=== PATIENT | male | born 1950 | race African-American/Black ===

== ENCOUNTER → 2019-01-19 | Outpatient (CLI) | payer MEDICARE, OTHER ==
[~2019-01-19] MED LIST: METOPROLOL 5 MG INJ IV
[2019-01-19] MEDS: METOPROLOL 100 MG TAB PO (10:43)
[2019-01-19] MEDS: METOPROLOL 100 MG TAB (10:53)
[2019-01-19] MEDS: NITROGLYCERIN AEROSOL (4.9 GM) SL (12:15)
[2019-01-19] MEDS: SOD CHLORIDE 0.9% 100 ML (13:04)
[2019-01-19] MEDS: IOHEXOL 100 ML (13:05)
[2019-01-19] MEDS: METOPROLOL 5 MG INJ (13:41)
== END | disposition home or self-care (01) ==
LOC: C/S 10:03
DX: R93.1 Abnormal findings on diagnostic imaging of heart and coronary circulation (principal)
CPT/HCPCS: 75571; 75571-59; 75574

== ENCOUNTER 2019-02-04 07:02 | Day surgery (SDC) | payer MEDICARE, OTHER ==
[2019-02-04 08:10] LABS: ADD MAN DIFF? NO
[2019-02-04 08:16] LABS: WHITE BLOOD COUNT 4.7 10^3/ul (4.8-10.8)
[2019-02-04 08:16] LABS: BASOPHILS % 0.4 % (0.0-2.0); EOSINOPHILS # 0.2 10^3/ul (0.0-0.5); EOSINOPHILS % 3.6 % (0.0-7.0); HEMATOCRIT 41.5 % (42.0-52.0); HEMOGLOBIN 13.4 g/dl (14.0-18.0); LYMPHOCYTES # 1.4 10^3/ul (0.8-2.9); LYMPHOCYTES % 29.4 % (15.0-51.0); MEAN CORPUSCULAR HEMOGLOBIN 28.8 pg (29.0-33.0); MEAN CORPUSCULAR HGB CONC 32.3 g/dl (32.0-37.0); MEAN CORPUSCULAR VOLUME 89.1 fl (82.0-101.0); MEAN PLATELET VOLUME 10.1 fl (7.4-10.4); MONOCYTE # 0.6 10^3/ul (0.3-0.9); MONOCYTES % 12.1 % (0.0-11.0); NEUTROPHIL # 2.6 10^3/ul (1.6-7.5); NEUTROPHILS % 54.3 % (39.0-77.0); PLATELET COUNT 269 10^3/UL (140-415); RED BLOOD COUNT 4.66 10^6/ul (4.70-6.10); RED CELL DISTRIBUTION WIDTH 12.9 % (11.5-14.5)
[2019-02-04] MEDS: SOD CHLORIDE 0.45% 1,000 ML IV (08:24)
[2019-02-04] MEDS: DIAZEPAM 5 MG TAB PO (08:24)
[2019-02-04] MEDS: FAMOTIDINE 20 MG TAB PO (08:24)
[2019-02-04] MEDS: DIPHENHYDRAMINE 50 MG CAP PO (08:24)
[2019-02-04 08:36] LABS: ANION GAP 4 (5-13); BLOOD UREA NITROGEN 15 mg/dl (7-20); CARBON DIOXIDE 31 mmol/L (21-31); CHLORIDE 104 mmol/L (97-110); CHOL/HDL RATIO 4.3 RATIO; CHOLESTEROL 174 mg/dl (100-200); CREATININE 0.91 mg/dl (0.61-1.24); Estimated GFR > 60 mL/min (>60); GLUCOSE 99 mg/dl (70-220); HDL CHOLESTEROL 40 mg/dl (30-78); LDL CHOLESTEROL,CALCULATED 118 mg/dl; POTASSIUM 4.5 mmol/L (3.5-5.1); SODIUM 139 mmol/L (135-144); TRIGLYCERIDES 80 mg/dl (0-149)
[2019-02-04 08:41] LABS: INR 0.98; PROTIME 13.1 Sec (11.9-14.9)
[2019-02-04 08:42] LABS: PARTIAL THROMBOPLASTIN TIME 28.7 Sec (23.0-35.0)
[2019-02-04] MEDS ORDERED: NITROGLYCERIN (IC) 100 MCG/ML INJ (10:08)
[2019-02-04] MEDS ORDERED: HEPARIN 1000 UNITS/ML 10 ML INJ (10:08)
[2019-02-04] MEDS ORDERED: FENTAnyl 50 MCG/ML VIAL (10:08)
[2019-02-04] MEDS ORDERED: VERAPAMIL 5 MG INJ (10:08)
[2019-02-04] MEDS ORDERED: LIDOCAINE 1% (MDV) 20 ML INJ (10:08)
[2019-02-04] MEDS ORDERED: MIDAZOLAM 1 MG/ML 2 ML INJ (10:08)
[2019-02-04] MEDS ORDERED: SOD CHLORIDE 0.9% 1,000 ML IV (11:06)
[2019-02-04] MEDS ORDERED: ONDANSETRON 4 MG INJ IV (11:30)
[2019-02-04] MEDS ORDERED: morphine 2 MG INJ IV (11:30)
[2019-02-04] MEDS ORDERED: AL HYDROX/MG HYDROX/SIMETH 30 ML CUP PO (11:30)
[2019-02-04] MEDS: ACETAMINOPHEN 325 MG TAB PO (14:02)
== END 2019-02-04 17:00 | disposition home or self-care (01) ==
LOC: CCL 07:02 → SDS 07:02 → CCL 17:00
DX: I25.10 Atherosclerotic heart disease of native coronary artery without angina pectoris (principal); R94.39 Abnormal result of other cardiovascular function study; I10 Essential (primary) hypertension; E78.5 Hyperlipidemia, unspecified
CPT/HCPCS: 71045; 80048; 80061; 82962; 85025; 85610; 85730; 93005; 93458

== ENCOUNTER 2019-03-19 06:30 | Day surgery (SDC) | payer MEDICARE, BC, OTHER ==
[2019-03-19] MEDS ORDERED: LIDOCAINE 2% (SDV) 5 ML INJ (08:36)
[2019-03-19] MEDS ORDERED: PROPOFOL 20 ML (08:36)
[2019-03-19] MEDS ORDERED: FENTAnyl 50 MCG/ML VIAL (08:36)
[2019-03-19] MEDS ORDERED: SUCCINYLCHOLINE CHLORIDE 100 MG/5 ML SYG IV ×2 (08:37→09:37)
[2019-03-19] MEDS ORDERED: CEFAZOLIN 1 GM INJ (09:08)
[2019-03-19] MEDS: CEFAZOLIN 2 GM/50 ML (PMX) 50 ML IVPB (09:15)
[2019-03-19] MEDS ORDERED: FAMOTIDINE 20 MG INJ (09:26)
[2019-03-19] MEDS ORDERED: ONDANSETRON 4 MG INJ (09:26)
[2019-03-19] MEDS ORDERED: METOCLOPRAMIDE 10 MG INJ (09:26)
[2019-03-19] MEDS ORDERED: EPHEDrine 25 MG/5 ML SYG (09:41)
[2019-03-19] MEDS: BUPIVACAINE 0.25% (MPF) 30 ML INJ (09:45)
[2019-03-19] MEDS ORDERED: FENTAnyl 50 MCG/ML VIAL IV ×2 (10:00)
[2019-03-19] MEDS ORDERED: OXYCODONE/ACETAMINOPHEN (5/325) TAB PO ×2 (10:00)
[2019-03-19] MEDS ORDERED: MEPERIDINE 25 MG INJ IV (10:00)
[2019-03-19] MEDS ORDERED: ONDANSETRON 4 MG INJ IV (10:00)
[2019-03-19] MEDS ORDERED: ALBUTEROL 0.083% (NEB) 2.5 MG/3 ML AMP HHN (10:00)
[2019-03-19] MEDS: FENTAnyl 50 MCG/ML VIAL IV ×4 (10:23→11:08)
[2019-03-19] MEDS: LABETALOL HCL 20MG INJ IV (10:28)
[2019-03-19] MEDS: HYDROCODONE/APAP (5/325) TAB PO (10:59)
== END 2019-03-19 12:22 | disposition home or self-care (01) ==
LOC: SDS 06:30
DX: D17.0 Benign lipomatous neoplasm of skin and subcutaneous tissue of head, face and neck (principal); E11.9 Type 2 diabetes mellitus without complications; I10 Essential (primary) hypertension; E78.5 Hyperlipidemia, unspecified; J45.909 Unspecified asthma, uncomplicated; Z79.84 Long term (current) use of oral hypoglycemic drugs
CPT/HCPCS: 14020; 82962; 88307